=== PATIENT | male | born 1965 | race Caucasian/White ===

== ENCOUNTER 2018-07-17 22:51 | Emergency (ER) | payer BC ==
[2018-07-17 23:04] VITALS: BP 130/89
--- NOTE | 2018-07-18 00:10 | EDM.PDOC ---
ED HPI GENERAL MEDICAL PROBLEM - General Chief Complaint: Genitourinary Problem Stated Complaint: ACHE IN GROIN AND PAIN IN TESTICLES Time Seen by Provider: 07/17/18 22:53 Source of Information: Reports: Patient, Family History Limitations: Reports: No Limitations - History of Present Illness INITIAL COMMENTS - FREE TEXT/NARRATIVE: Patient presents with testicle pain and groin pain. Started earlier in the afternoon at about noon. Fall trauma or straining or injury. Day progressed he notes more discomfort in the testicles bilaterally and in the anal genital area. No burning pain or blood in the urine showed many abnormal penile discharge, no fevers chills or sweats, no nausea vomiting or abdominal pain. He has never had any problems like this in the past. Circumcised male, he has a history of having normal colonoscopies. Pain is worse with touching or movement better standing still or lying flat. Groin Pain Score (Numeric/FACES): 4 - Related Data Allergies Allergy/AdvReac Type Severity Reaction Status Date / Time No Known Allergies Allergy Verified 04/03/16 10:47 MDT Home Meds: Home Meds Aspirin [Ecotrin] 81 mg PO DAILY 04/03/16 [History] buPROPion [Wellbutrin] 75 mg PO DAILY 04/03/16 [History] Past Medical History HEENT History: Reports: Impaired Vision Psychiatric History: Reports: Depression - Past Surgical History GI Surgical History: Reports: Appendectomy Neurological Surgical History: Reports: Lumbar Spine Musculoskeletal Surgical History: Reports: Shoulder Surgery Other Musculoskeletal Surgeries/Procedures:: back surgery for fragmented disk Social & Family History - Tobacco Use Smoking Status *Q: Never Smoker - Caffeine Use Caffeine Use: Reports: Coffee - Recreational Drug Use Recreational Drug Use: No ED ROS GENERAL - Review of Systems Review Of Systems: See Below Constitutional: Denies: Fever, Chills, Diaphoresis Respiratory: Denies: Shortness of Breath, Cough Cardiovascular: Denies: Chest Pain GI/Abdominal: Denies: Abdominal Pain, Diarrhea, Nausea, Vomiting : Reports: Pain. Denies: Discharge, Dysuria, Flank Pain, Frequency, Hematuria , Urgency Skin: Denies: Rash Neurological: Denies: Dizziness, Headache ED EXAM, RENAL/ - Physical Exam Exam: See Below Exam Limited By: No Limitations General Appearance: Alert, WD/WN Respiratory/Chest: Lungs Clear, Normal Breath Sounds Cardiovascular: Normal Peripheral Pulses, Regular Rate, Rhythm GI/Abdominal: Normal Bowel Sounds, Soft, Non-Tender (Male) Exam: No Hernia, Normal Inspection, Circumcised, Cremasteric Reflex, Scrotum Tenderness (L), Scrotum Tenderness (R), Testicular Tenderness (L), Testicular Tenderness (R). No: Inguinal Lymphadenopathy, Penile Lesions, Rash, Scrotal Swelling, Suprapubic Fullness, Testicular Mass, Urethral Discharge Extremities: Normal Inspection Neurological: Alert, Oriented Psychiatric: Normal Affect, Normal Mood Skin Exam: Warm, Dry Course - Vital Signs Text/Narrative:: Acute onset of testicle pain groin painof any hernia noted. Rule out testicular torsion, epididymitis, orchitis, urinary tract infection, seems less likely sexually transmitted infection. No signs of foreign ears gangrene. Urinalysis is negative. Await ultrasound. Patient declines any pain medicines at present. Last Recorded V/S: Last Vital Signs Temp 97.4 F 07/17/18 22:57 MDT Pulse 82 07/17/18 22:57 MDT Resp 18 07/17/18 22:57 MDT BP 130/89 07/17/18 22:57 MDT Pulse Ox 96 07/17/18 22:57 MDT - Orders/Labs/Meds Orders: Active Orders 24 hr Category Date Time Status Testicular US [Scrotum and Contents] [US] Stat Exams 07/17/18 23:29 Taken UA W/MICROSCOPIC [URIN] Stat Lab 07/17/18 23:38 Ordered Labs: Laboratory Tests 07/17/18 Range/Units 23:38 MDT Urine Color Yellow (Yellow) Urine Appearance Clear (Clear) Urine pH 6.0 (5.0-8.0) Ur Specific [place] 1.025 (1.005-1.030) Urine Protein Negative (Negative) Urine Glucose (UA) Negative (Negative) Urine Ketones Negative (Negative) Urine Occult Blood Negative (Negative) Urine Nitrite Negative (Negative) Urine Bilirubin Negative (Negative) Urine Urobilinogen 0.2 (0.2-1.0) Ur Leukocyte Esterase Negative (Negative) Urine RBC 0-5 (0-5) /hpf Urine WBC 0-5 (0-5) /hpf Ur Epithelial Cells 0-5 (0-5) /hpf Urine Bacteria Not seen (FEW) /hpf Urine Mucus Not seen (FEW) /hpf - Radiology Interpretation Free Text/Narrative:: Ultrasound of the scrotum and testicles was reviewed with radiology and shows some small bilateral hydroceles with small internal echoes testes otherwise are normal, epididymis grossly normal otherwise and incidental 3 mm cyst on the right epididymal head. Doppler in color image performed. - Re-Assessments/Exams Free Text/Narrative Re-Assessment/Exam: 07/18/18 01:04 Review of the results with the patient. Uncertain as to exact etiology. Does not appear to be obvious torsion although reviewed with him that this could be intermittent torsion and that he should make sure to get checked. I told him to make sure to wear brief underwear to support his testicles. Will try ibuprofen [id number], and asked them to make sure he follows up with his primary care physician and/or return if any increasing pain and swelling redness and consider repeat ultrasound. Departure - Departure Time of Disposition: :05 Disposition: Home, Self-Care 01 Clinical Impression: Testes pain - Discharge Information *PRESCRIPTION DRUG MONITORING PROGRAM REVIEWED*: Not Applicable *COPY OF PRESCRIPTION DRUG MONITORING REPORT IN PATIENT BEBE: Not Applicable Instructions: Testicular Self-Exam, [id number], Pain Without a Known Cause Referrals: Oscar Ba MD [Primary Care Provider] - Forms: ED Department Discharge Additional Instructions: Follow-up with her primary care physician to make sure that this improves and/ or resolves. Keep her scrotum supported with brief underwear. Try over-the- counter Motrin or Advil for anti-inflammatory pain. Make sure you return or get rechecked if any increasing pain, swelling, urinary symptoms and include consideration for repeat ultrasound to rule out torsion of the testicles. - My Orders Last 24 Hours: My Active Orders 07/17/18 23:29 Testicular US [Scrotum and Contents] [US] Stat 07/17/18 23:38 UA W/MICROSCOPIC [URIN] Stat - Assessment/Plan Last 24 Hours: My Active Orders 07/17/18 23:29 Testicular US [Scrotum and Contents] [US] Stat 07/17/18 23:38 UA W/MICROSCOPIC [URIN] Stat
--- NOTE | 2018-07-19 06:45 | US ---
Testicular ultrasound: Multiple real-time images were obtained of both testicles. Comparison: No previous study. Both testicles have a homogeneous ultrasound appearance. Arterial and venous blood flow seen within the testicles. Small epididymal cyst is noted on the right side measuring 3 mm. Small left-sided hydrocele is seen. Measurements: Right testicle: 5.0 x 3.4 x 3.0 cm Left testicle: 4.1 x 2.9 x 2.9 cm Impression: 1. Small 3 mm epididymal cyst on the right side. Small left-sided hydrocele. 2. Testicular ultrasound is otherwise unremarkable. Diagnostic code #2 I agree with preliminary report from [facility], finalized on 07/18/18, 1:48 AM Central Time
== END 2018-07-18 01:18 | disposition home or self-care (01) ==
LOC: JD.ED 22:51
DX: N50.812 Left testicular pain (principal); N50.811 Right testicular pain; Z79.82 Long term (current) use of aspirin; Z79.899 Other long term (current) drug therapy
CPT/HCPCS: 76870; 76870-26; 81001; 93975; 99283; 99284-25

== ENCOUNTER 2019-05-13 04:26 | Emergency (ER) | payer BC ==
[2019-05-13 04:38] VITALS: BP 147/92
[2019-05-13] MEDS ORDERED: Orphenadrine 100 MG Tab.ER PO STA (05:01)
--- NOTE | 2019-05-13 05:07 | EDM.PDOC ---
ED HPI GENERAL MEDICAL PROBLEM - General Chief Complaint: Upper Extremity Injury/Pain Stated Complaint: SHOULDER PAIN Time Seen by Provider: 05/13/19 04:41 Source of Information: Reports: Patient, Family (), RN Notes Reviewed History Limitations: Reports: No Limitations - History of Present Illness INITIAL COMMENTS - FREE TEXT/NARRATIVE: The patient states that he noticed mild left parascapular pain when he went to bed around 22:30 to 23:00 last night, but that the pain was much worse this morning when he woke up. He states that it was tender when his palpated the area. No prior similar symptoms. No recent injury to his left shoulder area, although he notes that he has rotator cuff tears that are tentatively scheduled for surgery this october. The patient also notes that he was reeling in fish yesterday morning, Monday, . The patient notes that he is left-handed. The patient's PCP is Dr. Oscar Marie. Left Shoulder Pain Score (Numeric/FACES): 8 - Related Data Allergies Allergy/AdvReac Type Severity Reaction Status Date / Time No Known Allergies Allergy Verified 05/13/19 04:31 Home Meds: Home Meds Aspirin [Ecotrin EC] 81 mg PO DAILY 04/03/16 [History] Cholecalciferol (Vitamin D3) [Vitamin D3] 5,000 unit PO DAILY 05/13/19 [History] Cyanocobalamin (Vitamin B12) [Vitamin B12] 1,000 mcg PO DAILY 05/13/19 [History] Dextroamphetamine/Amphetamine [Dextroamp-Amphet ER] 10 mg PO DAILY 05/13/19 [ History] Levothyroxine [Synthroid] 50 mcg PO 05/13/19 [History] [place]-3S/DHA/Epa/Fish Oil [[place] Power 1,050 mg Softgel] 1 cap PO DAILY [History] Orphenadrine [Norflex] 1 tab PO Q12H PRN #14 tab.er 05/13/19 [Rx] Past Medical History HEENT History: Reports: Impaired Vision Cardiovascular History: Reports: High Cholesterol Gastrointestinal History: Reports: Diverticulosis Psychiatric History: Reports: ADHD, Depression Endocrine/Metabolic History: Reports: Hypothyroidism - Past Surgical History GI Surgical History: Reports: Appendectomy, Colonoscopy Male Surgical History: Reports: Vasectomy Neurological Surgical History: Reports: Lumbar Spine (microdiscectomy) Musculoskeletal Surgical History: Reports: Shoulder Surgery (right, arthroscopic ) Social & Family History - Tobacco Use Smoking Status *Q: Never Smoker - Caffeine Use Caffeine Use: Reports: Coffee - Alcohol Use Alcohol Use History: No - Recreational Drug Use Recreational Drug Use: No - Living Situation & Occupation Living situation: Reports: , with Spouse, with Family (Son) Occupation: Employed (Maintenance) ED ROS GENERAL - Review of Systems Review Of Systems: ROS reveals no pertinent complaints other than HPI. ED EXAM, GENERAL - Physical Exam Exam: See Below Exam Limited By: No Limitations General Appearance: Alert, WD/WN, No Apparent Distress Neck: Normal Inspection, Supple, Non-Tender, Full Range of Motion Respiratory/Chest: No Respiratory Distress, Lungs Clear, Normal Breath Sounds, No Accessory Muscle Use Cardiovascular: Normal Peripheral Pulses, Regular Rate, Rhythm, No Edema, No Gallop, No JVD, No Murmur, No Rub Back Exam: Normal Inspection (No visible abnormality, such as swelling, erythema , ecchymosis, or abrasion), Paraspinal Tenderness (Reproducible, to the upper left scapular muscle either trapezius or rhomboid). No: Vertebral Tenderness Extremities: Normal Inspection, Normal Range of Motion, Non-Tender (left shouder. Painless ROM.), No Pedal Edema, Normal Capillary Refill Course - Vital Signs Last Recorded V/S: Last Vital Signs Temp 36.3 C 05/13/19 04:31 Pulse 75 05/13/19 04:31 Resp 18 05/13/19 04:31 BP 147/92 H 05/13/19 04:31 Pulse Ox 98 05/13/19 04:31 - Orders/Labs/Meds Meds: Medications Discontinued Medications Generic Name Dose Route Start Last Admin Trade Name Yong PRN Reason Stop Dose Admin Orphenadrine Citrate 100 mg 05/13/19 05:01 05/13/19 05:16 Norflex PO 05/13/19 05:02 100 mg ONETIME STA Administration - Re-Assessments/Exams Free Text/Narrative Re-Assessment/Exam: 05/13/19 05:01 The patient has pain and tenderness in his upper left trapezius or rhomboid muscle, likely related to his activity of reeling in fish yesterday morning. I will start him on Norflex and prescribe a 7-day course. In addition, I would like the patient to take [id number] ibuprofen. Departure - Departure Time of Disposition: 05:04 Disposition: Home, Self-Care 01 Condition: Good Clinical Impression: Muscle spasm of back - Discharge Information *PRESCRIPTION DRUG MONITORING PROGRAM REVIEWED*: Not Applicable *COPY OF PRESCRIPTION DRUG MONITORING REPORT IN PATIENT BEBE: Not Applicable Prescriptions: Orphenadrine [Norflex] 1 tab PO Q12H PRN #14 tab.er PRN Reason: Muscle Spasm Instructions: Muscle Cramps and Spasms, [id number] Referrals: PCP,Not In Area [Primary Care Provider] - Forms: ED Department Discharge Additional Instructions: You were seen in the emergency room for left upper back pain. Based on your history and physical examination, you are most likely suffering from a muscle spasm of a paraspinous muscle, such as your trapezius or rhomboid. You have been started on the muscle relaxant Norflex. A prescription for Norflex has been sent to the [facility]. Take one tablet of Norflex every 12 hours, starting this evening, Monday, 2018, as needed for discomfort. In addition to Norflex, we recommend you also take [id number] ibuprofen, 2 -3 tablets (400-600 mg) every 8 hours, with food, as needed for discomfort. If you do not have substantial improvement in your pain within the next few days , please follow-up with your PCP, Dr. Oscar Marie. If any other problems, please do not hesitate to return to the ER.
== END 2019-05-13 05:20 | disposition home or self-care (01) ==
LOC: JD.ED 04:26
DX: M62.830 Muscle spasm of back (principal); E03.9 Hypothyroidism, unspecified; Z79.82 Long term (current) use of aspirin; Z79.899 Other long term (current) drug therapy; Z90.49 Acquired absence of other specified parts of digestive tract
CPT/HCPCS: 99283; A9270

== ENCOUNTER 2020-09-18 20:07 | Emergency (ER) | payer BC ==
[2020-09-18 20:37] VITALS: BP 131/95; PULSE 85
[2020-09-18] MEDS ORDERED: Diphtheria,Pertussis(Acell),Tetanus Vaccine 0.5 ML Syringe IM ONE (20:40)
[2020-09-18] MEDS ORDERED: Lidocaine 1% 10 ML MDV INJECT ONE (20:40)
--- NOTE | 2020-09-18 20:43 | EDM.PDOC ---
ED HPI GENERAL MEDICAL PROBLEM - General Chief Complaint: Laceration Stated Complaint: CUT RIGHT HAND WITH A KNIFE ACCIDENTALLY Time Seen by Provider: 09/18/20 20:26 Source of Information: Reports: Patient, RN Notes Reviewed History Limitations: Reports: No Limitations - History of Present Illness INITIAL COMMENTS - FREE TEXT/NARRATIVE: Patient is a 55-year-old male who presents to the ED for evaluation of a laceration. Patient notes he was cleaning a deer earlier today, and ended up cutting himself or stabbing himself in the right hand with a knife. This is in the webbing between the first and second digits. He has no numbness or tingling, and has all range of motion associated with his thumb intact. The wound itself measures about 1/2 cm, and there is some slight bruising in this area. Patient notes he is predominantly left-handed. He is not sure of his last tetanus update. Patient notes that he is on quarantine for COVID-19, as he was diagnosed on 09/07/2020. He has been on isolation precautions through triage, and will remain so for the remainder of his stay. - Related Data Allergies Allergy/AdvReac Type Severity Reaction Status Date / Time No Known Allergies Allergy Verified 05/13/19 04:31 Home Meds: Home Meds Aspirin [Ecotrin EC] 81 mg PO DAILY 04/03/16 [History] Cholecalciferol (Vitamin D3) [Vitamin D3] 5,000 unit PO DAILY 05/13/19 [History] Cyanocobalamin (Vitamin B12) [Vitamin B12] 1,000 mcg PO DAILY 05/13/19 [History] Dextroamphetamine/Amphetamine [Dextroamp-Amphet ER] 10 mg PO DAILY 05/13/19 [History] Levothyroxine [Synthroid] 50 mcg PO 05/13/19 [History] Past Medical History HEENT History: Reports: Impaired Vision Cardiovascular History: Reports: High Cholesterol Gastrointestinal History: Reports: Diverticulosis Psychiatric History: Reports: ADHD, Depression Endocrine/Metabolic History: Reports: Hypothyroidism - Past Surgical History GI Surgical History: Reports: Appendectomy, Colonoscopy Male Surgical History: Reports: Vasectomy Neurological Surgical History: Reports: Lumbar Spine Musculoskeletal Surgical History: Reports: Shoulder Surgery Social & Family History - Tobacco Use Tobacco Use Status *Q: Never Tobacco User - Caffeine Use Caffeine Use: Reports: Coffee, Soda - Recreational Drug Use Recreational Drug Use: No - Living Situation & Occupation Living situation: Reports: , with Spouse, with Family (Son) Occupation: Employed (Maintenance) ED ROS GENERAL - Review of Systems Review Of Systems: Comprehensive ROS is negative, except as noted in HPI. ED EXAM, SKIN/RASH Exam: See Below Exam Limited By: No Limitations General Appearance: Alert, WD/WN, No Apparent Distress Respiratory/Chest: No Respiratory Distress, Lungs Clear, Normal Breath Sounds, Chest Non-Tender Cardiovascular: Normal Peripheral Pulses, Regular Rate, Rhythm, No Murmur Peripheral Pulses: 2+: Radial (L), Radial (R) Extremities: Normal Range of Motion, Normal Capillary Refill Neurological: Alert, Oriented, Normal Cognition, No Motor/Sensory Deficits Psychiatric: Normal Affect, Normal Mood Skin: Warm, Dry, Normal Color, No Rash, Wound/Incision (Half centimeter laceration to the web spacing between the first and second digit of the right hand.) ED SKIN PROCEDURES - Laceration/Wound Repair Right Hand Appearance: Subcutaneous, Linear, Clean Distal NVT: Neuro & Vascular Intact, No Tendon Injury Anesthetic Type: Local Local Anesthesia - Lidocaine (Xylocaine): 1% Plain Local Anesthetic Volume: 3cc Skin Prep: Chlorhexidine (Hibiciens), Saline Exploration/Debridement/Repair: Wound Explored, In a Bloodless Field, Explored to Base, No Foreign Material Found Closed with: Sutures Lac/Wound length In cm: 0.5 Suture Size: 4-0 # of Sutures: 2 Suture Type: Prolene, Interrupted, Simple Sterile Dressing Applied: Nurse Tetanus Status Addressed: Yes Complications: No Course - Vital Signs Last Recorded V/S: Last Vital Signs Temp 98.5 F 09/18/20 20:35 Pulse 85 09/18/20 20:35 Resp 20 09/18/20 20:35 BP 131/95 H 09/18/20 20:35 Pulse Ox 97 09/18/20 20:35 - Orders/Labs/Meds Orders: Active Orders 24 hr Category Date Time Status Vaccines to be Administered [RC] PER UNIT ROUTINE Care 09/18/20 20:40 Ordered Meds: Medications Discontinued Medications Generic Name Dose Route Start Last Admin Trade Name Freq PRN Reason Stop Dose Admin Diphtheria/Tetanus/Acell Pertussis 0.5 ml 09/18/20 20:40 Adacel IM 09/18/20 20:41 .ONCE ONE Lidocaine HCl 10 ml 09/18/20 20:40 Xylocaine 1% INJECT 09/18/20 20:41 ONETIME ONE Departure - Departure Time of Disposition: 20:44 Disposition: Home, Self-Care 01 Condition: Good Clinical Impression: Hand laceration Qualifiers: Encounter type: initial encounter Foreign body presence: without foreign body Laterality: right Qualified Code(s): S61.411A - Laceration without foreign body of right hand, initial encounter - Discharge Information *PRESCRIPTION DRUG MONITORING PROGRAM REVIEWED*: No *COPY OF PRESCRIPTION DRUG MONITORING REPORT IN PATIENT BEBE: No Instructions: Laceration Care, Adult, [id number] Referrals: Oscar Ba MD [Primary Care Provider] - Forms: ED Department Discharge Additional Instructions: You have been evaluated in the ED for your laceration. Sutures will need to stay in for 10-14 days. Your tetanus was updated at today's visit. You should not need this updated for 10 years. You may return to the ED or any clinic for removal. Please keep this area clean and dry, you may cleanse with regular soap and water. No vigorous scrubbing. Please try to avoid submerging the affected area in water for prolonged periods of time until the sutures are removed. Watch out for signs of infection like increased redness, swelling, pain at the laceration site, or if you should develop any fevers or chills. Please return to ED if your symptoms change or worsen. Sepsis Event Note (ED) - Evaluation Sepsis Screening Result: No Definite Risk - Focused Exam Vital Signs: Vital Signs Temp Pulse Resp BP Pulse Ox 09/18/20 20:35 98.5 F 85 20 131/95 H 97 - My Orders Last 24 Hours: My Active Orders 09/18/20 20:40 Vaccines to be Administered [RC] PER UNIT ROUTINE - Assessment/Plan Last 24 Hours: My Active Orders 09/18/20 20:40 Vaccines to be Administered [RC] PER UNIT ROUTINE
== END 2020-09-18 21:25 | disposition home or self-care (01) ==
LOC: JD.ED 20:07
DX: S61.411A Laceration without foreign body of right hand, initial encounter (principal); F90.9 Attention-deficit hyperactivity disorder, unspecified type; F32.9 Major depressive disorder, single episode, unspecified; E03.9 Hypothyroidism, unspecified; Z23 Encounter for immunization; Z79.82 Long term (current) use of aspirin; Z79.899 Other long term (current) drug therapy; W26.0XXA Contact with knife, initial encounter
CPT/HCPCS: 12001; 90471; 90715; 99282; J2001

== ENCOUNTER 2023-10-27 09:23 | Emergency (ER) | payer BC ==
[2023-10-27] MEDS ORDERED: Sodium Chloride 0.9% 10 ML Syringe FLUSH PRN (09:45)
[2023-10-27 09:52] LABS: BASOPHILS ABSOLUTE AUTO 0.1 K/mm3 (0.0-0.2); BASOPHILS PERCENT AUTO 1.4 % (0.0-1.0); EOSINOPHILS ABSOLUTE AUTO 0.2 K/mm3 (0.0-0.4); EOSINOPHILS PERCENT AUTO 3.9 % (0.0-6.0); HEMATOCRIT 42.3 % (42.0-52.0); HEMOGLOBIN 14.5 gm/dl (14.0-18.0); IMMATURE GRAN ABSOLUTE AUTO 0.01 K/mm3 (0.00-0.05); IMMATURE GRAN PERCENT AUTO 0.2 % (0.0-0.4); LYMPHOCYTES ABSOLUTE AUTO 1.8 K/mm3 (1.0-4.8); LYMPHOCYTES PERCENT AUTO 34.8 % (24.0-44.0); MEAN CORPUSCULAR HEMOGLOBIN 30.3 pg (28.0-32.0); MEAN CORPUSCULAR HGB CONC 34.3 g/dl (32.0-36.0); MEAN CORPUSCULAR VOLUME 88.5 fl (83.0-99.0); MONOCYTES ABSOLUTE AUTO 0.5 K/mm3 (0.0-0.8); MONOCYTES PERCENT AUTO 9.8 % (0.0-8.0); NEUTROPHILS ABSOLUTE AUTO 2.5 K/mm3 (1.8-7.7); NEUTROPHILS PERCENT AUTO 49.9 % (41.0-71.0); PLATELET COUNT,PLT 229 K/mm3 (150-400); RED BLOOD CELL COUNT 4.78 M/mm3 (4.52-5.90); WHITE BLOOD CELL COUNT,WBC 5.09 K/mm3 (3.9-11.3)
[2023-10-27 10:09] LABS: PROTHROMBIN TIME 9.6 SECONDS (9.7-12.0)
[2023-10-27 10:10] LABS: INR < 0.93; PTT,PARTIAL THROMBOPLSTIN TIME 26.2 SECONDS (21.7-31.4)
[2023-10-27 10:24] LABS: A/G RATIO 1.1 (1-2); ALBUMIN 3.9 g/dl (3.4-5.0); BILIRUBIN TOTAL 0.3 mg/dL (0.2-1.0); BUN/CREATININE RATIO 15.4 (14-18); CALCIUM 9.4 mg/dL (8.5-10.1); CREATININE 1.3 mg/dL (0.7-1.3); EST CRCL DRUG DOSING (CG) 63.17 mL/min; PROTEIN TOTAL,TP 7.5 g/dl (6.4-8.2)
[2023-10-27 10:33] LABS: TSH 4.359 uIU/mL (0.358-3.74)
[2023-10-27 10:34] LABS: T4 FREE 0.93 ng/dL (0.76-1.46)
[2023-10-27 11:24] VITALS: BP 133/89; PULSE 54
== END 2023-10-27 11:32 | disposition home or self-care (01) ==
LOC: JD.ED 09:23
DX: R42 Dizziness and giddiness (principal); E78.00 Pure hypercholesterolemia, unspecified; E03.9 Hypothyroidism, unspecified; Z79.82 Long term (current) use of aspirin; Z79.899 Other long term (current) drug therapy
CPT/HCPCS: 36415; 70450; 70450-26; 80053; 83735; 84439; 84443; 84484; 85025; 85610; 85730; 93005; 99284

== ENCOUNTER 2023-11-02 11:23 | Emergency (ER) | payer BC ==
[2023-11-02 12:12] LABS: BASOPHILS ABSOLUTE AUTO 0.1 K/mm3 (0.0-0.2); BASOPHILS PERCENT AUTO 1.7 % (0.0-1.0); EOSINOPHILS ABSOLUTE AUTO 0.1 K/mm3 (0.0-0.4); EOSINOPHILS PERCENT AUTO 2.8 % (0.0-6.0); HEMATOCRIT 42.9 % (42.0-52.0); HEMOGLOBIN 14.5 gm/dl (14.0-18.0); IMMATURE GRAN ABSOLUTE AUTO 0.01 K/mm3 (0.00-0.05); IMMATURE GRAN PERCENT AUTO 0.2 % (0.0-0.4); LYMPHOCYTES ABSOLUTE AUTO 1.5 K/mm3 (1.0-4.8); LYMPHOCYTES PERCENT AUTO 32.2 % (24.0-44.0); MEAN CORPUSCULAR HGB CONC 33.8 g/dl (32.0-36.0); MEAN CORPUSCULAR VOLUME 88.8 fl (83.0-99.0); MEAN PLATELET VOLUME 9.4 fl (9.4-12.4); MONOCYTES ABSOLUTE AUTO 0.6 K/mm3 (0.0-0.8); MONOCYTES PERCENT AUTO 13.7 % (0.0-8.0); NEUTROPHILS ABSOLUTE AUTO 2.3 K/mm3 (1.8-7.7); NEUTROPHILS PERCENT AUTO 49.4 % (41.0-71.0); PLATELET COUNT,PLT 240 K/mm3 (150-400); RED BLOOD CELL COUNT 4.83 M/mm3 (4.52-5.90); WHITE BLOOD CELL COUNT,WBC 4.59 K/mm3 (3.9-11.3)
[2023-11-02 12:27] LABS: A/G RATIO 1.1 (1-2); ALBUMIN 4.1 g/dl (3.4-5.0); ANION GAP 13.3 (5-15); BILIRUBIN TOTAL 0.5 mg/dL (0.2-1.0); BUN/CREATININE RATIO 14.2 (14-18); CALCIUM 9.4 mg/dL (8.5-10.1); CREATININE 1.2 mg/dL (0.7-1.3); EST CRCL DRUG DOSING (CG) 68.44 mL/min; POTASSIUM,K 4.3 mEq/L (3.5-5.1); PROTEIN TOTAL,TP 7.7 g/dl (6.4-8.2); PROTHROMBIN TIME 9.8 SECONDS (9.7-12.0)
[2023-11-02 12:28] LABS: D-DIMER QUANTITATIVE 0.24 mg/L (0.19-0.50)
[2023-11-02 12:33] LABS: INR < 0.93
[2023-11-02 15:19] LABS: CORONAVIRUS COVID-19 NAA NEGATIVE (NEGATIVE); INFLUENZA A NAA NEGATIVE (NEGATIVE)
[2023-11-02 17:36] VITALS: BP 128/67; PULSE 79
== END 2023-11-02 16:10 | disposition home or self-care (01) ==
LOC: JD.ED 11:23
DX: R53.1 Weakness (principal); E03.9 Hypothyroidism, unspecified; Z86.73 Personal history of transient ischemic attack (TIA), and cerebral infarction without residual deficits; Z20.822 Contact with and (suspected) exposure to COVID-19; Z79.82 Long term (current) use of aspirin; Z79.899 Other long term (current) drug therapy
CPT/HCPCS: 0240U; 36415; 71045; 80053; 83735; 84484; 85025; 85379; 85610; 93005; 99285